=== PATIENT | male | born 1940 | race Caucasian/White ===

== ENCOUNTER 2023-09-18 06:49 | Day surgery (SDC) | payer MEDICARE, OTHER, SELFPAY ==
[2023-09-18 07:44] LABS: Glucose - Point of Care 179 mg/dl (70-99)
[2023-09-18 07:47] VITALS: BMI 23.1
== END 2023-09-18 09:00 | disposition home or self-care (01) ==
LOC: CATH 06:49
PROVIDERS: ATTENDING PHYSICIAN Internal Medicine Cardiovascular Disease; FAMILY PHYSICIAN Nurse Practitioner
DX: I48.19 Other persistent atrial fibrillation (principal); Z79.01 Long term (current) use of anticoagulants; E11.9 Type 2 diabetes mellitus without complications; Z79.84 Long term (current) use of oral hypoglycemic drugs; C91.10 Chronic lymphocytic leukemia of B-cell type not having achieved remission
CPT/HCPCS: 82962; 92960; 93005

== ENCOUNTER → 2024-02-28 09:41 | Outpatient (REF) | payer MEDICARE, OTHER, SELFPAY ==
[2024-02-28 10:56] LABS: % Basophils 0.3 % (0-2); % Immature Granulocytes 0.3 % (0-0.5); % Lymphocytes 37.2 % (20.5-51.1); % Monocytes 6.8 % (1.7-9.3); % Neutrophils 54.4 % (42.2-75.2); Absolute Eosinophils 0.1 10^3/uL (0-0.7); Absolute Lymphocytes 2.5 10^3/uL (1.2-3.4); Absolute Monocytes 0.5 10^3/uL (0.1-0.6); Absolute Neutrophils 3.7 10^3/uL (1.4-6.5); Hematocrit 41.4 % (39.0-52.0); Hemoglobin 13.8 g/dL (13.0-18.0); Mean Corp Hgb Conc. 33.3 g/dL (33.0-37.0); Mean Corpuscular Hgb 28.9 pg (27.0-31.0); Mean Corpuscular Volume 86.8 fL (80.0-94.0); Nucleated Red Blood Cells % 0 % (-); Red Blood Cell Count 4.77 10^6/uL (4.70-6.10); Red Cell Dist. Width 13.3 % (11.5-14.5); White Blood Cell Count 6.7 10^3/uL (4.8-10.8)
[2024-02-28 12:01] LABS: HDL Cholesterol 30 mg/dl; LDL Cholesterol, Calculated 76 mg/dl; Total Cholesterol 133 mg/dl (50-199); Triglyceride 137 mg/dl (10-149); Very Low Density Lipoprotein 27 mg/dl (0-30)
[2024-02-28 14:23] LABS: Glycohemoglobin (HgbA1c) 6.7 % (4.0-5.6)
[2024-02-29 22:23] LABS: PSA Total 1.3 ng/mL (0.0-4.0)
== END ==
LOC: REG 09:41
PROVIDERS: ATTENDING PHYSICIAN Internal Medicine Cardiovascular Disease; FAMILY PHYSICIAN Nurse Practitioner
DX: Z00.00 Encounter for general adult medical examination without abnormal findings (principal); E78.5 Hyperlipidemia, unspecified; E83.118 Other hemochromatosis; N40.0 Benign prostatic hyperplasia without lower urinary tract symptoms
CPT/HCPCS: 36415; 80061; 83036; 84153; 84154; 85025

== ENCOUNTER → 2024-08-01 10:12 | Outpatient (REF) | payer MEDICARE, OTHER, SELFPAY ==
[2024-08-01 11:21] LABS: % Basophils 0.4 % (0-2); % Eosinophils 1.4 % (0-6); % Immature Granulocytes 0.4 % (0-0.5); % Lymphocytes 29.5 % (20.5-51.1); % Monocytes 8.5 % (1.7-9.3); % Neutrophils 59.8 % (42.2-75.2); Absolute Eosinophils 0.1 10^3/uL (0-0.7); Absolute Lymphocytes 2.1 10^3/uL (1.2-3.4); Absolute Monocytes 0.6 10^3/uL (0.1-0.6); Absolute Neutrophils 4.2 10^3/uL (1.4-6.5); Hematocrit 44.4 % (39.0-52.0); Hemoglobin 14.3 g/dL (13.0-18.0); Mean Corp Hgb Conc. 32.2 g/dL (33.0-37.0); Mean Corpuscular Hgb 29.4 pg (27.0-31.0); Mean Corpuscular Volume 91.2 fL (80.0-94.0); Nucleated Red Blood Cells % 0 % (-); Red Blood Cell Count 4.87 10^6/uL (4.70-6.10); Red Cell Dist. Width 13.2 % (11.5-14.5)
[2024-08-01 11:43] LABS: Glycohemoglobin (HgbA1c) 6.2 % (4.0-5.6)
[2024-08-01 11:53] LABS: ALT (SGPT) 29 U/L (0-50); AST (SGOT) 31 U/L (17-59); Albumin 4.2 g/dl (3.5-5.0); Alkaline Phosphatase 75 U/L (38-126); Blood Urea Nitrogen 16 mg/dl (9-20); Calcium 10.4 mg/dl (8.4-10.2); Carbon Dioxide 29 mmol/L (22-30); Chloride 102 mmol/L (98-107); Digoxin 0.6 ng/ml (0.8-2.0); Glucose 124 mg/dl (70-99); Sodium 139 mmol/L (135-145); Total Bilirubin 0.7 mg/dl (0.2-1.3); Total Protein 7.5 g/dl (6.3-8.2); eGFR > 60.00
== END ==
LOC: REG 10:12
PROVIDERS: ATTENDING PHYSICIAN Nurse Practitioner
DX: N30.00 Acute cystitis without hematuria (principal); I10 Essential (primary) hypertension; E83.00 Disorder of copper metabolism, unspecified; E78.5 Hyperlipidemia, unspecified; E83.118 Other hemochromatosis; Z79.899 Other long term (current) drug therapy
CPT/HCPCS: 36415; 80053; 80162; 83036; 85025

== ENCOUNTER 2024-10-10 06:28 | Day surgery (SDC) | payer MEDICARE, OTHER, SELFPAY ==
[2024-10-10 10:41] LABS: Glucose - Point of Care 130 mg/dl (70-99)
== END 2024-10-10 11:31 | disposition home or self-care (01) ==
LOC: GI 06:28
PROVIDERS: ATTENDING PHYSICIAN Internal Medicine Gastroenterology
DX: R13.10 Dysphagia, unspecified (principal); R93.3 Abnormal findings on diagnostic imaging of other parts of digestive tract; K22.2 Esophageal obstruction; K20.90 Esophagitis, unspecified without bleeding
CPT/HCPCS: 43249; 43239; 88305; 82962

== ENCOUNTER → 2024-10-31 09:49 | Outpatient (REF) | payer MEDICARE, OTHER, SELFPAY ==
[2024-10-31 11:45] LABS: HDL Cholesterol 29 mg/dl; LDL Cholesterol, Calculated 84 mg/dl; Total Cholesterol 146 mg/dl (50-199); Triglyceride 168 mg/dl (10-149); Very Low Density Lipoprotein 33 mg/dl (0-30)
== END ==
LOC: REG 09:49
PROVIDERS: ATTENDING PHYSICIAN Nurse Practitioner; FAMILY PHYSICIAN Nurse Practitioner
DX: E78.2 Mixed hyperlipidemia (principal)
CPT/HCPCS: 36415; 80061

== ENCOUNTER → 2024-11-04 15:52 | Outpatient (REF) | payer MEDICARE, OTHER, SELFPAY ==
[2024-11-04 17:40] LABS: Iron 90 ug/dl (49-181)
[2024-11-04 17:50] LABS: Total Iron Binding Capacity 361 ug/dl (261-462)
[2024-11-04 17:55] LABS: Hematocrit 39.9 % (39.0-52.0); Hemoglobin 13.2 g/dL (13.0-18.0); Mean Corp Hgb Conc. 33.1 g/dL (33.0-37.0); Mean Corpuscular Volume 90.3 fL (80.0-94.0); Nucleated Red Blood Cells % 0 % (-); Red Cell Dist. Width 14.1 % (11.5-14.5)
[2024-11-04 17:56] LABS: Platelet Count 66 10^3/uL (130-400)
[2024-11-04 18:17] LABS: Ferritin 58.1 ng/ml (17.9-464.0)
== END ==
LOC: REG 15:52
PROVIDERS: ATTENDING PHYSICIAN Internal Medicine Hematology & Oncology; FAMILY PHYSICIAN Nurse Practitioner
DX: C18.7 Malignant neoplasm of sigmoid colon (principal); E83.110 Hereditary hemochromatosis; C83.09 Small cell B-cell lymphoma, extranodal and solid organ sites
CPT/HCPCS: 36415; 82728; 83540; 83550; 85025

== ENCOUNTER → 2025-02-03 09:37 | Outpatient (REF) | payer MEDICARE, OTHER, SELFPAY ==
[2025-02-03 11:12] LABS: Hematocrit 44.2 % (39.0-52.0); Hemoglobin 14.7 g/dL (13.0-18.0); Mean Corp Hgb Conc. 33.3 g/dL (33.0-37.0); Mean Corpuscular Volume 90.4 fL (80.0-94.0); Nucleated Red Blood Cells % 0 % (-); Red Cell Dist. Width 13.5 % (11.5-14.5)
[2025-02-03 11:15] LABS: Iron 149 ug/dl (49-181)
[2025-02-03 11:26] LABS: Total Iron Binding Capacity 357 ug/dl (261-462)
[2025-02-03 11:43] LABS: Ferritin 88.5 ng/ml (17.9-464.0)
== END ==
LOC: REG 09:37
PROVIDERS: ATTENDING PHYSICIAN Internal Medicine Hematology & Oncology; FAMILY PHYSICIAN Nurse Practitioner
DX: C18.7 Malignant neoplasm of sigmoid colon (principal); E83.110 Hereditary hemochromatosis; C83.09 Small cell B-cell lymphoma, extranodal and solid organ sites
CPT/HCPCS: 36415; 82728; 83540; 83550; 85025

== ENCOUNTER 2025-02-27 13:01 | Emergency (ER) | payer MEDICARE, OTHER, SELFPAY ==
[2025-02-27 13:05] VITALS: BP 154/85
--- NOTE | 2025-02-27 15:38 | ED.GENMED ---
History of Present Illness
General
Chief Complaint: Musculo-Skeletal Complaint
Source: patient and spouse
Exam Limitations: none
Time Seen by Provider: 02/27/25 14:56
History of Present Illness
History of Present Illness:
Shooting sharp like pain at the base of the 2nd and 3rd toe of the left foot. Sharp intermittent last seconds. No diffuse leg pain numbness tingling or weakness. Has been going on since early a.m.
Past History
Past History
ED Past Medical History: Hypercholesterolemia, NIDDM and Other
ED Past Surgical History: Bowel resection, Orthopedic and Other
Social History
Tobacco: Non-smoker
Alcohol: None
Personal:
Living: with family
Employment: Retired
Review of Systems
Review of Systems
All Other Systems: Not applicable
Constitutional: Denies fever
Phy Exam
Physical Exam
Physical Exam:
GENERAL: Alert and oriented in no apparent distress
EYE: Orbits normal.
CARDIAC: Regular rate and rhythm
LUNGS: No distress
NEUROLOGICAL: Alert and oriented , grossly non-focal
SKIN: Warm and dry, no rash or lesion, no discoloration, skin intact.
MUSCULOSKELETAL: No edema,no deformity.Good color. Great dorsalis and posterior tibial pulses in the left foot. No swelling no erythema. Reproducible tenderness at the base of the second toe at the MTP joint. No swelling no warmth no fluctuance.
Good capillary refill.
PSYCH: Normal and appropriate interaction.
Course
Vital Signs
Initial and Last Documented VS:
Initial Vital Signs
Temp Pulse Resp BP Pulse Ox
98.4 F 105 16 154/85 97
02/27/25 13:05 02/27/25 13:05 02/27/25 13:05 02/27/25 13:05 02/27/25 13:05
Last Documented Vital Signs
Temp Pulse Resp BP Pulse Ox
98.4 F 105 16 154/85 97
02/27/25 13:05 02/27/25 13:05 02/27/25 13:05 02/27/25 13:05 02/27/25 13:05
MDM/Problems Addressed
Differential Diagnosis Includes:
Patient clinically has no neurovascular issue. Great pulses good color no cellulitis. No cords or calf swelling. On Eliquis. Nothing suspicious for DVT. Most suspicion of a Morris's neuroma given the sharp nervelike pain at the base of the
second toe with tenderness.
*Pulse Oximetry
SaO2: 97
Oxygen Mode of Delivery: Room air
Patient hypoxic: no (97)
*Critical Care Note
Total Time (30-74mins, 75-104mins- exclusive of procedures): Not Applicable
ED Attending Note
-
Portions of this chart may have been created with voice recognition software.� Occasional wrong word or��sound alike� substitutions may have occurred due to the inherent limitations of voice recognition software.
Discharge Plan
Departure
Patient Disposition: Home (Routine Discharge)
Date of Disposition: 02/27/25
Time of Disposition: 15:41
Patient with high blood pressure during this ER visit?: Yes
Discharge Problem:
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
Instructions: Morris's Neuroma (DC), BLOOD PRESSURE
Prescriptions:
No Action
tamsulosin 0.4 MG capsule
0.4 mg PO QPM
metformin 500 MG tablet
500 mg PO BID
gemfibrozil 600 MG tablet
600 mg PO BID
finasteride 5 MG tablet
5 mg PO DAILY
digoxin 125 mcg (0.125 mg) Tablet
125 mcg PO QPM
Eliquis 5 mg Tablet
5 mg PO BID
icosapent ethyl 1 gram Capsule
2 g PO BID
Referrals:
Otis Perez DPM [Active, Podiatry] - Follow up in 5-7 days
Jazmín Delgadillo CRNP [Family Provider, Internal Medicine]
Activity Restrictions/Additional Instructions:
Tylenol for pain
Call the manager trust for close follow-up
Return with increased pain swelling redness numbness tingling or weakness elsewhere or any other concerning symptoms
Interventions
Interventions:
*Risk Screen - Suicide Last Done: 02/27/25 13:05
*Neglect/Abuse Screening Last Done: 02/27/25 13:05
Discharge Date and Time
Print Language: DIVEHI
[2025-02-27 16:03] VITALS: BP 142/74
== END 2025-02-27 16:04 | disposition home or self-care (01) ==
LOC: EMR 13:01
PROVIDERS: EMERGENCY PHYSICIAN Emergency Medicine; FAMILY PHYSICIAN Nurse Practitioner
DX: M79.672 Pain in left foot (principal); E78.00 Pure hypercholesterolemia, unspecified; E11.9 Type 2 diabetes mellitus without complications
CPT/HCPCS: 99282

== ENCOUNTER → 2025-03-24 11:52 | Outpatient (REF) | payer MEDICARE, OTHER, SELFPAY ==
[2025-03-24 12:39] LABS: Hematocrit 42.7 % (39.0-52.0); Hemoglobin 14.1 g/dL (13.0-18.0); Mean Corp Hgb Conc. 33.0 g/dL (33.0-37.0); Mean Corpuscular Volume 90.3 fL (80.0-94.0); Nucleated Red Blood Cells % 0 % (-); Red Cell Dist. Width 13.4 % (11.5-14.5)
[2025-03-24 13:15] LABS: Iron 106 ug/dl (49-181)
[2025-03-24 13:24] LABS: Total Iron Binding Capacity 384 ug/dl (261-462)
[2025-03-24 13:50] LABS: Ferritin 109.0 ng/ml (17.9-464.0)
== END ==
LOC: REG 11:52
PROVIDERS: ATTENDING PHYSICIAN Internal Medicine Hematology & Oncology; FAMILY PHYSICIAN Nurse Practitioner
DX: C18.7 Malignant neoplasm of sigmoid colon (principal); E83.110 Hereditary hemochromatosis; C83.09 Small cell B-cell lymphoma, extranodal and solid organ sites
CPT/HCPCS: 36415; 82728; 83540; 83550; 85025